=== PATIENT | female | born 1990 | race Caucasian/White ===

== ENCOUNTER 2022-06-21 07:28 | Inpatient (IN) ==
[2022-06-21] MEDS ORDERED: LIDOCAINE 1% LOCAL 20 ML VIAL INFIL PRN (07:34)
[2022-06-21] MEDS ORDERED: OXYTOCIN 30 UNITS/500 ML BAG IV PRN ×4 (07:34→18:14)
[2022-06-21] MEDS ORDERED: PENICILLIN G POTASSIUM 6 MU in DEXTROSE 5% 250 ML IV STA ×2 (07:34→07:49)
[2022-06-21] MEDS: LACTATED RINGER'S 1,000 ML IV PRN ×2 (07:57→13:06)
[2022-06-21 08:45] LABS: Hematocrit (blood only) 32.4 % (37.0-47.0); Hemoglobin 11.4 g/dl (12.0-16.0); Mean Corpuscular Hemoglobin 31.1 pg (25.0-34.0); Mean Corpuscular Hgb Conc 35.2 g/dL (32.0-36.0); Mean Corpuscular Volume 88.3 fL (80.0-100.0); Mean Platelet Volume 10.6 fL (9.4-12.4); Platelet Count 231 K/uL (130-400); RDW Coefficient of Variation 13.1 % (11.5-14.5); RDW Standard Deviation 41.9 fL (36.4-46.3); Red Blood Count 3.67 M/uL (4.20-5.40); White Blood Count 12.13 K/ul (4.8-10.8)
--- NOTE | 2022-06-21 09:41 | History & Physical Report ---
Date of Service June 21, 2022 Assessment & Plan (1) Supervision of normal first : (2) GBS carrier: Plan 31yo at 40w5d GA. IOL at term 1. Fetus: Cat 1 2. Labor: Pitocin, Will AROM when able 3. GBS positive: PCN 4. Vitals: WNL Admission and Anticipated Discharge Date Admission Date: June 21, 2022 History of Present Illness Primary Care Provider: Rodney Warren, DO 31yo at 40w5 day gestational age. Presents with late term IOL. complicated by GBS positive. OB Labs: Blood Type B Positive 11/03/21 Antibody Screen NEGATIVE 11/03/21 Hemoglobin 11.4 g/dl (12.0-16.0) L 03/23/22 HematocritE 32.3 % (34.1-44.9) L 03/23/22 Mean Corpuscular Volume 89.7 fL (80.0-100.0) 11/03/21 Platelet Count 493 K/uL (130-400) H 11/03/21 Rubella IgG Antibody Immune (Immune) 11/03/21 Rapid Plasma Reagin Nonreactive (Nonreactive) 11/03/21 Hepatitis B Surface Antigen. NON-REACTIVE (NON-REACTIVE) 11/03/21 Hepatitis C Antibody (EIA) NON-REACTIVE (NON-REACTIVE) 11/03/21 HIV (1&2) Ag and Ab Confirmation NON-REACTIVE (NON-REACTIVE) 11/03/21 Glucose 1 Hour 50 gm Load 108 mg/dl (70-130) 03/23/22 OB Optional Labs: Chlamydia trachomatis RNA NOT DETECTED (NOT DETECTED) 11/03/21 Neisseria gonorrhoeae RNA NOT DETECTED (NOT DETECTED) 11/03/21 Labs Reviewed: cfdna-low risk--mln Declines msafp--mln GBS positive urine__akh Allergies Allergy/AdvReac Type Severity Reaction Status Date / Time No Known Allergies Allergy Verified 06/15/22 10:55 Home Medications Medication Instructions Recorded Confirmed Type prenat.vits,riccardo,vuz-[id number] 1 tab PO DAILY 11/03/21 06/21/22 History Patient History Medical History (Updated 06/21/22 @ 07:49 by Ebonie Ortiz MD, FACOG) History of chicken pox Hx of migraines Surgical History S/P wisdom tooth extraction Family History Denies family history of Ovarian cancer Breast cancer Colorectal cancer Social History Smoking Status: Never smoker Hx Alcohol Use: No Hx Substance Use: No Preferred Language: Tajik Communication Ability: Effective 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 Beliefs That Will Affect Care: None marital status: marital status details: Isidro Tran (31) [phone] Current Living Situation: Spouse Current Living Situation Comment: lives with spouse, dog current occupational status: employed current occupation: [employer] Other Information That Helps Us Care for You: No Feels Safe at Home: Yes Safety Concerns: Feels Safe At This Time Assistive Devices: None Physical Exam 2 Genitourinary: normal external appearance OB Exam Abdomen: + vertex Manual OB Exam: + cervical dilation 4 cm, + cervical effacement 90% and + station high OB Exam Monitor Tracing: + category I and + normal FHT variability; no early decelerations present, no late decelerations present and n o variable decelerations Results & Data ([facility]) Vital Signs (Past 12 Hours) Vital Signs Temp Pulse Resp BP 06/21/22 07:32 101 H 130/75 06/21/22 07:36 36.7 C 101 H 20 130/75 Coding Level of Care Code None Diagnoses Supervision of normal first Z34.00 GBS carrier Z22.330
[2022-06-21] MEDS ORDERED: PENICILLIN G POTASSIUM 3 MU in DEXTROSE 5% 100 ML IV PRN ×2 (10:34→10:49)
[2022-06-21] MEDS ORDERED: NALBUPHINE HCL INJ 10 MG/ML AMP IV PRN (11:03)
[2022-06-21] MEDS ORDERED: ePHEDrine sulfate 50 MG/ML AMP IV PRN (11:03)
[2022-06-21] MEDS ORDERED: ONDANSETRON INJ 2 MG/ML 2 ML VIAL IV PRN (11:03)
[2022-06-21] MEDS ORDERED: METOCLOPRAMIDE HCL 20 MG in SODIUM CHLORIDE 0.9% 50 ML IV PRN (11:03)
[2022-06-21] MEDS ORDERED: fentaNYL 2MCG/ML ROPIVACAINE 1.25MG/ML 100 ML BAG EPI PRN (11:03)
[2022-06-21] MEDS ORDERED: diphenhydrAMINE 50 MG/ML VIAL IV PRN (11:03)
[2022-06-21] MEDS ORDERED: NALOXONE HCL 1 MG in SODIUM CHLORIDE 0.9% 1000ML 1,000 ML IV PRN (11:03)
[2022-06-21] MEDS ORDERED: NALOXONE HCL 0.4 MG/1 ML VIAL/CARP IV PRN (11:03)
--- NOTE | 2022-06-21 11:03 | Anesthesiology Consultation ---
Date of Service June 21, 2022 Assessment & Plan Chart Review Chart Review: Acceptable Risk for Labor Epidural Consults Requested none ASA ASA2 Proposed Anesthesia Anesthesia Type: Labor Epidural Risk / Benefits Reviewed With: PT / POA / Parent / Guardian, Accepts Plan and Informed Consent Obtained History Height/Weight Height: 5 ft 7 in Weight: 80.286 kg Allergies Allergy/AdvReac Type Severity Reaction Status Date / Time No Known Allergies Allergy Verified 06/15/22 10:55 Medications Home Medications Medication Instructions Recorded Confirmed Last Taken prenat.vits,riccardo,bse-jifn-[id number] 1 tab PO DAILY 11/03/21 06/21/22 2 Days Ago ~06/19/22 Active Medications Generic Name Dose Route Start Last Admin Trade Name Freq PRN Reason Stop Dose Admin Lactated Ringer's 1,000 mls @ 125 mls/hr 06/21/22 07:34 06/21/22 07:57 Lr IV 06/23/22 07:33 125 mls/hr .Q8H PRN Administration L&D Protocol Protocol Oxytocin 30 units in 500 mls @ 2 mls/hr 06/21/22 07:37 06/21/22 08:54 Pitocin IV 06/23/22 07:36 0.12 units/hr .Q24H PRN 2 mls/hr Labor Induction/Augmentation Administration Protocol 0.12 UNITS/HR NPO Date Last Intake of Fluids: 06/21/22 Time Last Intake of Fluids: 10:00 Date Last Intake of Solids: 06/20/22 Time Last Intake of Solids: 23:59 Past Medical History Medical History History of chicken pox Hx of migraines Exercise / Class Metabolic Activity II 4-5 Yardwork/Stairs/Walk up hill Past Family History Family History Denies family history of Ovarian cancer Breast cancer Colorectal cancer Past Surgical History Surgical History S/P wisdom tooth extraction Past Anesthesia History No Hx of Anesthesia Complications and No Family Hx of Anesthesia Complications History of PONV No Hx of PONV and No Hx of Motion Sickness Social History Smoking Status: Never smoker Hx Alcohol Use: No Hx Substance Use: No Physical Exam Vital Signs Last Vital Signs Temp 36.7 C 06/21/22 07:36 Pulse 79 06/21/22 10:33 Resp 20 06/21/22 07:36 BP 140/87 06/21/22 10:33 ENMT Mouth: no TMJ abnormality Thyromental Distance: > or= 3.5 Finger Breadths Mallampati Class: II Neck normal visual inspection and trachea midline; neck extension not limited Respiratory normal respiratory effort Auscultation: lungs clear to auscultation bilaterally Cardiovascular Rate/Rhythm: regular rate and regular rhythm Heart Sounds: no murmur Musculoskeletal Spine: normal cervical ROM Extremities: full ROM of extremities Neurologic moves all extremities Psychiatric Orientation: alert and oriented x 3 Testing Laboratory Results 06/21/22 07:59 Blood Type B Positive 06/21/22 07:59 Antibody Screen NEGATIVE 06/21/22 07:59
[2022-06-21] MEDS ORDERED: ePHEDrine sulfate 50 MG/ML AMP ONE (11:04)
[2022-06-21] MEDS ORDERED: BUPIVACAINE 0.25% 30 ML VIAL ONE (11:05)
[2022-06-21] MEDS ORDERED: LIDOCAINE 2%/EPINEPHRINE 1:200,000 20 ML SDV ONE (11:05)
[2022-06-21] MEDS ORDERED: fentaNYL citrate 100 MCG/2 ML VIAL ONE (11:05)
[2022-06-21] MEDS ORDERED: SODIUM CHLORIDE 0.9% INJ 10 ML VIAL ONE (11:05)
[2022-06-21] MEDS ORDERED: fentaNYL 2MCG/ML ROPIVACAINE 1.25MG/ML 100 ML BAG EPI ONE (11:06)
[2022-06-21] MEDS ORDERED: METHYLERGONOVINE MALEATE 0.2 MG/ML AMP ONE (16:30)
[2022-06-21] MEDS ORDERED: miSOPROStoL 200 MCG TAB ONE (16:32)
[2022-06-21] MEDS ORDERED: CARBOPROST TROMETHAMINE 250 MCG/ML AMPUL ONE (16:37)
[2022-06-21] MEDS ORDERED: SODIUM CHLORIDE 0.9% 250 ML IV PRN (16:50)
[2022-06-21 17:17] LABS: Hematocrit (blood only) 31.8 % (37.0-47.0); Hemoglobin 11.1 g/dl (12.0-16.0); Mean Corpuscular Hemoglobin 31.2 pg (25.0-34.0); Mean Corpuscular Hgb Conc 34.9 g/dL (32.0-36.0); Mean Corpuscular Volume 89.3 fL (80.0-100.0); Mean Platelet Volume 10.5 fL (9.4-12.4); Platelet Count 245 K/uL (130-400); RDW Coefficient of Variation 13.1 % (11.5-14.5); RDW Standard Deviation 42.4 fL (36.4-46.3); Red Blood Count 3.56 M/uL (4.20-5.40); White Blood Count 17.55 K/ul (4.8-10.8)
[2022-06-21] MEDS: ceFAZolin 2000MG 2,000 MG/15 ML SYR IV SCH (17:38)
[2022-06-21 17:49] LABS: Fibrinogen 365 mg/dl (184-400); INR 1.1 (0.9-1.1); Partial Thromboplastin Time 28.4 Seconds (21.0-31.0); Prothrombin Time 11.5 Seconds (9.0-12.0)
[2022-06-21] MEDS ORDERED: bisacodyL 10 MG SUPP PR PRN (18:10)
[2022-06-21] MEDS ORDERED: HYDROCORTISONE ACETATE 25 MG SUPP PR PRN (18:10)
[2022-06-21] MEDS ORDERED: IBUPROFEN 600 MG TAB PO PRN (18:10)
[2022-06-21] MEDS ORDERED: DIPHTHERIA/TETANUS/PERTUSSIS 0.5mL SYR/VIAL (Age 7+yrs) IM ONE (18:10)
[2022-06-21] MEDS ORDERED: BENZOCAINE 20% AER SPR 82.5 GM CAN EXT PRN (18:10)
[2022-06-21] MEDS ORDERED: ACETAMINOPHEN 325 MG TAB PO PRN (18:10)
[2022-06-21] MEDS ORDERED: METHYLERGONOVINE MALEATE 0.2 MG/ML AMP IM ONE (18:14)
[2022-06-21] MEDS ORDERED: CARBOPROST TROMETHAMINE 250 MCG/ML AMPUL IM ONE (18:14)
[2022-06-21] MEDS ORDERED: miSOPROStoL 200 MCG TAB PR ONE (18:14)
--- NOTE | 2022-06-21 19:31 | Anesthesia Procedure Note ---
Date of Service June 21, 2022 Anesthesia Post Epidural Note Vital Signs Vital Signs: Temp Pulse Resp BP Pulse Ox O2 Del Method 37.2 C 102 H 18 124/60 97 Room Air 06/21/22 19:05 06/21/22 19:25 06/21/22 19:05 06/21/22 19:05 06/21/22 19:25 06/21/22 11:03 Pain Intensity Bilateral Abdomen: Pain Intensity: 7 Notes Mental Status: alert / awake / arousable and participated in evaluation Nausea / Vomiting: adequately controlled Pain: adequately controlled Airway Patency, RR, SpO2: stable & adequate BP & HR: stable & adequate Hydration State: stable & adequate Neuraxial Anesthesia: was administered and sensory block resolved Anesthetic Complications: no major complications apparent and Pt Satisfied with anesthetic care Epidural: Removed without complications and With tip intact
[2022-06-21 21:31] LABS: Hematocrit (blood only) 28.4 % (37.0-47.0); Hemoglobin 9.9 g/dl (12.0-16.0)
[2022-06-21] MEDS: DOCUSATE SODIUM 100 MG CAP PO SCH (21:38)
--- NOTE | 2022-06-21 22:00 | Delivery Summary ---
DATE OF SERVICE: 06/21/2022 PROCEDURE: Normal spontaneous vaginal delivery with second-degree perineal laceration repair and Nic ri balloon placement. SURGEON: Joe Khan MD PREOPERATIVE DIAGNOSES: 1. Single intrauterine at 40 weeks 5 days gestational age. 2. GBS positive. POSTOPERATIVE DIAGNOSES: 1. Single intrauterine at 40 weeks 5 days gestational age. 2. GBS positive. 3. Status post procedure. ESTIMATED BLOOD LOSS: 1000 mL. DRAINS: Straight cath after delivery of the placenta. URINE OUTPUT: 100 mL via straight cath. COMPLICATIONS: hemorrhage of 1000 mL. FINDINGS: Viable female with weight of 7 pounds 13-1/2 ounces and Apgars of 9 and 9 at 1 and 5 minutes respectively. INDICATIONS: Heidi is a 31-year-old G1, P0, at 40 weeks 5 days gestational age, presented for in duction of labor. The patient was started on oxytocin per regular protocol. She underwent spontaneo us rupture of membranes with rupture of forebag. She received an epidural for anesthesia and progres sed to complete-complete, +2 station and pushed for approximately 5 contractions to achieve delivery. DESCRIPTION OF PROCEDURE: The patient progressed to 10 cm dilated, 100% effaced, positive 2 station, pushed intact perineum with epidural anesthesia and delivered a viable female with weight an d Apgars as noted above. Head of the delivered in VELASQUEZ position, restituted left transverse. No nuchal cord was noted. Body and shoulders quickly followed. was noted to be vigorous up on delivery and 1 minute delayed cord clamping was initiated. Cord was then double clamped and cut. remained on maternal abdomen. Cord blood was obtained. Shortly thereafter, attention was t urned to delivery of the placenta, which was delivered intact, 3-vessel cord with gentle cord tractio n. The cord did avulse during extraction of the placenta, although no manual extraction was necessar y as the placenta was already in the vaginal canal. After delivery of the placenta, uterine massage was initiated and the placenta was checked and noted to be intact. The patient was noted to have heavier than expected bleeding and bimanual massage was immediately initiated, which helped to improve bleeding, but for a short period of time and then blee ding did just become heavy again. Bladder was drained for 100 mL and continued uterine massage was a pplied. Bleeding was noted to be intermittently heavy and as a result, Methergine was given IM. [place] rine massage was continued and the patient's bleeding appeared to improve, but then was noted to have another heavy gush of bleeding and the patient was given Cytotec 800 mcg per rectum as well as a dos e of Hemabate. Continued uterine massage was applied and bleeding did improve again for a short juan carlos od of time. The patient was noted to have mostly appeared to be lower uterine atony. The bleeding did start to b ecome heavy again and a uterine sweep was performed with no placenta or membranes noted. Inspection of the cervix and vagina was noted for a second-degree perineal laceration repair, but bleeding was n oted to be coming from the uterus. A Bakri was initially placed, but was exposed shortly thereafter after about 10 minutes due to the patient's vomiting that did ensue. CBC, coags and fibrinogen, as w ell as type and cross for 2 units was ordered stat per nurse placement during the process of the heav y bleeding. After the bleeding did ultimately improve and second-degree perineal laceration was repai red with 3-0 Vicryl with traditional crown stitch. A left labial laceration was also repaired with 3 -0 Vicryl with continuous running stitch. Needle, sponge, and instrument counts were correct at the completion of the case. The patient and were stable in the immediate post-delivery period. Bleeding was minimal at the completion of the case. Job ID: [id number]
[2022-06-22] MEDS: ceFAZolin 2000MG 2,000 MG/15 ML SYR IV SCH ×3 (01:28→16:40)
[2022-06-22 06:29] LABS: Hematocrit (blood only) 26.3 % (37.0-47.0); Mean Corpuscular Hemoglobin 30.8 pg (25.0-34.0); Mean Corpuscular Hgb Conc 34.2 g/dL (32.0-36.0); Mean Corpuscular Volume 90.1 fL (80.0-100.0); Mean Platelet Volume 10.6 fL (9.4-12.4); Platelet Count 244 K/uL (130-400); RDW Standard Deviation 42.4 fL (36.4-46.3); Red Blood Count 2.92 M/uL (4.20-5.40); White Blood Count 14.82 K/ul (4.8-10.8)
--- NOTE | 2022-06-22 07:20 | Obstetrical Progress Note ---
Date of Service June 22, 2022 Assessment & Plan (1) Encounter for care and examination after delivery: 31-year-old day 1 status post vaginal delivery. Patient doing well. Bleeding has been minimal overnight. Routine care. Subjective Ambulation: ambulating normally Voiding: no voiding problems Passing Gas:: Yes Diet Tolerance:: regular diet Lochia:: Moderate Feeding Type:: breast feeding Physical Exam Constitutional WD/WN, vitals as above Respiratory normal respiratory effort; no respiratory distress and no labored breathing Gastrointestinal (Abdomen) Inspection/Auscultation: abdomen normal to inspection; abdomen not distended Percussion/Palpation: abdomen soft; abdomen nontender, no guarding and abdomen not rigid Genitourinary OB Exam Abdomen: + fundal height Fundus: + firm and + relation to umbilicus (Below); not tender or not boggy Results & Data ([facility]) Vital Signs (Past 12 Hours) Vital Signs Temp Pulse Pulse Resp BP BP Pulse Ox 06/22/22 05:30 37.3 C 89 18 106/67 06/22/22 03:39 36.6 C 88 18 121/65 06/21/22 23:16 37.4 C 83 18 128/56 L 06/21/22 21:57 84 18 123/72 06/21/22 21:03 99 H 18 127/71 06/21/22 20:10 103 H 98 06/21/22 20:09 104 H 93 06/21/22 20:05 105 H 98 06/21/22 20:01 104 H 18 109/67 06/21/22 20:00 101 H 97 06/21/22 19:57 102 H 92 06/21/22 19:55 103 H 97 06/21/22 19:50 97 H 100 06/21/22 19:47 96 H 114/62 06/21/22 19:45 87 97 06/21/22 19:40 93 H 98 06/21/22 19:35 104 H 98 06/21/22 19:30 92 H 97 06/21/22 19:25 102 H 97 06/21/22 19:20 107 H 98
[2022-06-22] MEDS: FERROUS SULFATE 325 MG TAB PO SCH (08:09)
[2022-06-22] MEDS: PRENATAL VITAMIN 1 TAB PO SCH (08:09)
[2022-06-22] MEDS: DOCUSATE SODIUM 100 MG CAP PO SCH ×2 (08:09→20:15)
[2022-06-22] MEDS ORDERED: bisacodyL 5 MG TABEC PO SCH (20:00)
[2022-06-23 06:38] LABS: Hematocrit (blood only) 22.7 % (37.0-47.0); Hemoglobin 7.6 g/dl (12.0-16.0)
--- NOTE | 2022-06-23 07:18 | Obstetrical Progress Note ---
Date of Service June 23, 2022 Assessment & Plan (1) Encounter for care and examination after delivery: 31 yo PP2 from , doing well -Meeting all pp milestones, asymptomatic from anemia -B+/rubella immune/ -f/u 6 weeks for appt, rec iron. Stable for d/c home today Subjective Ambulation: ambulating normally Voiding: no voiding problems Passing Gas:: Yes Diet Tolerance:: regular diet Lochia:: Small Feeding Type:: breast feeding Pain well managed with medication Review of Systems Denies fevers, chills, n/v, MUÑOZ, CP, SOB Physical Exam Constitutional WD/WN, vitals as above no acute distress Respiratory normal respiratory effort, lungs clear to auscultation Cardiovascular RRR, no murmur, no edema Gastrointestinal (Abdomen) Percussion/Palpation: abdomen soft; abdomen nontender fundus firm at umbilicus and NT Musculoskeletal BLE symmetric, nonerythematous, nontender Results & Data ([facility]) Vital Signs (Past 12 Hours) Vital Signs Temp Pulse Resp BP BP Pulse Ox O2 Del Method 06/22/22 23:55 98.4 F 94 H 18 121/67 Room Air 06/22/22 20:15 Room Air 06/22/22 20:15 99.1 F 98 H 18 113/71 97 Room Air
[2022-06-23] MEDS: PRENATAL VITAMIN 1 TAB PO SCH (07:33)
[2022-06-23] MEDS: DOCUSATE SODIUM 100 MG CAP PO SCH (07:33)
[2022-06-23] MEDS: FERROUS SULFATE 325 MG TAB PO SCH (07:33)
== END 2022-06-23 12:00 | disposition home or self-care (01) | DRG 807 ==
LOC: 4S1 07:28 → 4E2 06-22 05:36